=== PATIENT | female | born 1975 | race Caucasian/White ===

== ENCOUNTER 2021-02-26 13:08 | Outpatient (CLI) | payer BC | END 2021-02-26 13:09 | disposition home or self-care (01) | LOC: CSHMAMMO 13:08 | PROVIDERS: ATTEND Family Medicine | DX: Z12.31 Encounter for screening mammogram for malignant neoplasm of breast (principal) | CPT/HCPCS: 77063; 77067 ==

== ENCOUNTER 2022-02-27 09:57 | Outpatient (CLI) | payer BC | END 2022-02-27 09:58 | disposition home or self-care (01) | LOC: CSHMAMMO 09:57 | PROVIDERS: ATTEND Family Medicine | DX: Z12.31 Encounter for screening mammogram for malignant neoplasm of breast (principal) | CPT/HCPCS: 77063; 77067 ==

== ENCOUNTER 2023-03-05 09:05 | Outpatient (CLI) | payer OTHER | END 2023-03-05 09:06 | disposition home or self-care (01) | LOC: CSHMAMMO 09:05 | PROVIDERS: ATTEND Student in an Organized Health Care Education/Training Program | DX: Z12.31 Encounter for screening mammogram for malignant neoplasm of breast (principal) | CPT/HCPCS: 77063; 77067 ==

== ENCOUNTER 2024-03-08 10:59 | Outpatient (CLI) | payer OTHER | END 2024-03-08 11:00 | disposition home or self-care (01) | LOC: CSHMAMMO 10:59 | PROVIDERS: ATTEND Student in an Organized Health Care Education/Training Program | DX: Z12.31 Encounter for screening mammogram for malignant neoplasm of breast (principal) | CPT/HCPCS: 77063; 77067 ==